=== PATIENT | male | born 2000 | race American Indian/Alaskan Native ===

== ENCOUNTER 2020-04-19 15:11 | Emergency (ER) | payer OTHER ==
[~2020-04-19] VITALS: Ht 170.2 cm; Wt 68.0 kg
[2020-04-19] MEDS ORDERED: DAILY MULTIPLE1 EACH PO (15:23)
--- NOTE | 2020-04-20 06:24 | EKG ---
[facility] [address] [place], [place] [address] Signed Normal sinus rhythm with sinus arrhythmia Rightward axis Borderline ECG No previous ECGs available Confirmed by LESLEY MEIER MD ([id number]) on 04/20/2020 6:24:28 AM Electronically Signed By: LESLEY MEIER MD 04/20/20623 PATIENT NAME: BLADE KAILASHSANDRA Electrocardiogram DATE OF : [birth year] PHYSICIAN: LESLEY MEIER MD REPORT #: [id number] REPORT IS CONFIDENTIAL AND NOT TO BE RELEASED WITHOUT AUTHORIZATION
== END 2020-04-19 17:22 | disposition home or self-care (01) ==
LOC: ED 15:11
DX: R09.1 Pleurisy (principal)
CPT/HCPCS: 36415; 71046; 80053; 83735; 84484; 85025; 93005; 93010; 96374; 99285-25; J1885

== ENCOUNTER 2021-01-17 19:28 | Emergency (ER) | payer OTHER ==
[~2021-01-17] VITALS: Ht 170.2 cm; Wt 65.0 kg
[~2021-01-17 19:28] MED LIST: DAILY MULTIPLE1 EACH PO
[2021-01-17] MEDS ORDERED: HYDROCODON-ACE1 EA10 PO (21:10)
== END 2021-01-17 22:16 | disposition home or self-care (01) ==
LOC: ED 19:28
DX: S62.316A Displaced fracture of base of fifth metacarpal bone, right hand, initial encounter for closed fracture (principal); S01.81XA Laceration without foreign body of other part of head, initial encounter; V00.131A Fall from skateboard, initial encounter
CPT/HCPCS: 12011; 29125; 73110; 90471; 90715; 99283-25

== ENCOUNTER 2024-10-04 14:43 | Emergency (ER) | payer OTHER ==
[~2024-10-04] VITALS: Ht 167.6 cm; Wt 74.1 kg
[~2024-10-04 14:43] MED LIST changes: +CYCLOBENZAPRINE10 MG PO; +HYDROCODON-ACE1 EA10 PO; +K-TAB ER20 MEQ PO; +PEPCID20 MG PO
[2024-10-04 15:42] LABS: BILIRUBIN, URINE NEGATIVE (negative); BLOOD/HGB, URINE NEGATIVE (Negative); KETONE, URINE NEGATIVE (Negative); LEUK ESTERASE, URINE NEGATIVE (negative); NITRITE, URINE NEGATIVE (negative)
[2024-10-04 15:47] LABS: BACTERIA, URINE NONE SEEN /hpf (negative); CASTS, URINE NONE SEEN \\lpf; COLLECTION TYPE, URINE CLEAN CATCH; CRYSTALS, URINE NONE SEEN (0-1+); EPITHELIAL CELLS, URINE SQUAMOUS 1+ /lpf (0-1+); RED BLOOD CELLS, URINE 0-1 /hpf (0-5); REFLEX CULTURE, URINE No (No); WHITE BLOOD CELLS, URINE 0-1 /HPF (0-5)
[2024-10-04] MEDS ORDERED: PANTOPRAZOLE SODIUM 40 MG/10 ML VIAL IV ONE (16:00)
[2024-10-04] MEDS ORDERED: KETOROLAC TROMETHAMINE 30 MG/ML VIAL IV ONE (16:00)
[2024-10-04] MEDS ORDERED: ondansetron HCL 4 MG/2 ML VIAL IV ONE (16:00)
[2024-10-04] MEDS ORDERED: SODIUM CHLORIDE 0.9% 1,000 ML IV ONE (16:00)
[2024-10-04 16:12] LABS: AMPHETAMINES, URINE NEGATIVE (NEGATIVE); BARBITURATES, URINE NEGATIVE (NEGATIVE); BENZODIAZEPINE, URINE NEGATIVE (NEGATIVE); BUPRENORPHINE, URINE NEGATIVE (NEGATIVE); CANNABINOID, URINE NEGATIVE (NEGATIVE); COCAINE, URINE NEGATIVE (NEGATIVE); ECSTASY, URINE NEGATIVE (NEGATIVE); FENTANYL, URINE NEGATIVE (NEGATIVE); METHADONE, URINE NEGATIVE (NEGATIVE); OPIATES, URINE NEGATIVE (NEGATIVE); OXYCODONE, URINE NEGATIVE (NEGATIVE); PHENCYCLIDINE, URINE NEGATIVE (NEGATIVE)
[2024-10-04 16:14] LABS: HEMATOCRIT 30.8 % (35.0-50.0); HEMOGLOBIN 10.4 g/dL (12.0-18.0); MCH 29.1 (27-36); MCHC 33.8 g/dl (30-36); MCV 86.3 fl (81-99); PLATELET COUNT 284 K/uL (140-440); RBC 3.57 M/ul (4.3-5.7)
[2024-10-04 16:30] LABS: LYMPHOCYTES, MANUAL DIFF 20; MONOCYTES, MANUAL DIFF 7; NEUTROPHILS, MANUAL DIFF 73
[2024-10-04 16:31] LABS: ALBUMIN 4.1 g/dL (3.4-5.0); BILIRUBIN, TOTAL 0.2 ng/dL (0.2-1.0); BUN/CREATININE RATIO 8.33 (6.0-28.6); CALCIUM 9.1 mg/dL (8.5-10.1); CREATININE, SERUM 0.72 mg/dL (0.70-1.30); PROTEIN, TOTAL 8.2 g/dL (6.4-8.2)
[2024-10-04 17:08] LABS: N. GONORRRHOEAE BY PCR NOT DETECTED (NOT DETECT)
[2024-10-04 19:29] VITALS: BP 143/89
== END 2024-10-04 19:31 | disposition home or self-care (01) ==
LOC: ED 14:43
PROVIDERS: Emergency Medicine
DX: C95.00 Acute leukemia of unspecified cell type not having achieved remission (principal); F10.129 Alcohol abuse with intoxication, unspecified; Z87.891 Personal history of nicotine dependence
CPT/HCPCS: 36415; 74176; 80053; 80307; 81001; 83690; 85025; 87491; 96374; 96375; 99284-25; G0480; J1885; J2405; J2470; J7030

== ENCOUNTER 2024-11-11 15:56 | Emergency (ER) | payer OTHER ==
[~2024-11-11] VITALS: Ht 167.6 cm; Wt 75.7 kg
[2024-11-11] MEDS ORDERED: OMEPRAZOLE20 MG PO (16:16)
[2024-11-11] MEDS ORDERED: ACETAMINOPHEN325 M1 PO (16:16)
[2024-11-11] MEDS ORDERED: IBUPROFEN600 MG PO (16:17)
[2024-11-11] MEDS ORDERED: LORazepam 2 MG/ML VIAL IV PRN (17:00)
[2024-11-11] MEDS ORDERED: SODIUM CHLORIDE 0.9% 1,000 ML IV ONE (17:00)
[2024-11-11 17:09] LABS: EOSINOPHILS 0.1 % (0-6); HEMATOCRIT 33.1 % (35.0-50.0); HEMOGLOBIN 10.7 g/dL (12.0-18.0); LYMPHOCYTES 17.8 % (24-44); MCH 25.4 (27-36); MCHC 32.4 g/dl (30-36); MCV 78.5 fl (81-99); MONOCYTES 8.5 % (0-12); NEUTROPHILS 72.6 % (39-80); PLATELET COUNT 331 K/uL (140-440); RBC 4.22 M/ul (4.3-5.7); RDW 21.2 (10.5-15.0)
[2024-11-11 17:29] LABS: ALBUMIN 4.5 g/dL (3.4-5.0); ALBUMIN/GLOBULIN RATIO 0.98 (1.1-2.4); ANION GAP 16.2 (7-21); BILIRUBIN, TOTAL 0.3 ng/dL (0.2-1.0); BUN/CREATININE RATIO 8.86 (6.0-28.6); CALCIUM 9.3 mg/dL (8.5-10.1); CREATININE, SERUM 0.79 mg/dL (0.70-1.30); MAGNESIUM 1.9 mg/dL (1.8-2.4); POTASSIUM 4.2 mmol/L (3.5-5.1); PROTEIN, TOTAL 9.1 g/dL (6.4-8.2)
[2024-11-11 18:41] LABS: AMPHETAMINES, URINE NEGATIVE (NEGATIVE); BARBITURATES, URINE NEGATIVE (NEGATIVE); BENZODIAZEPINE, URINE NEGATIVE (NEGATIVE); BUPRENORPHINE, URINE NEGATIVE (NEGATIVE); CANNABINOID, URINE NEGATIVE (NEGATIVE); COCAINE, URINE NEGATIVE (NEGATIVE); ECSTASY, URINE NEGATIVE (NEGATIVE); FENTANYL, URINE NEGATIVE (NEGATIVE); METHADONE, URINE NEGATIVE (NEGATIVE); OPIATES, URINE NEGATIVE (NEGATIVE); OXYCODONE, URINE NEGATIVE (NEGATIVE); PHENCYCLIDINE, URINE NEGATIVE (NEGATIVE)
[2024-11-11] MEDS ORDERED: CHLORDIAZEPOXID25 MG PO (18:53)
[2024-11-11 19:14] VITALS: BP 150/78
--- NOTE | 2024-11-13 10:16 | EKG ---
[facility] [address] [place] [address] Signed Normal sinus rhythm with sinus arrhythmia Normal ECG When compared with ECG of 03-MAY-2024 19:51, Nonspecific T wave abnormality has replaced inverted T waves in Inferior leads Nonspecific T wave abnormality no longer evident in Anterolateral leads Confirmed by Vilma Bejarano DO ([id number]) on 11/13/2024 10:16:33 AM Electronically Signed By: VILMA BEJARANO DO 11/13/24 1016 PATIENT NAME: SANDRA CRUZ Electrocardiogram DATE OF : 00 PHYSICIAN: VILMA BEJARANO DO REPORT #: [id number] REPORT IS CONFIDENTIAL AND NOT TO BE RELEASED WITHOUT AUTHORIZATION
== END 2024-11-11 19:08 | disposition home or self-care (01) ==
LOC: ED 15:56
PROVIDERS: Emergency Medicine
DX: F10.10 Alcohol abuse, uncomplicated (principal); Z87.891 Personal history of nicotine dependence; Z79.899 Other long term (current) drug therapy
CPT/HCPCS: 36415; 80053; 80307; 83690; 83735; 85025; 93005; 93010; 96374; 99285-25; G0480; J2060; J7030

== ENCOUNTER 2024-11-15 03:01 | Emergency (ER) | payer OTHER ==
[~2024-11-15] VITALS: Ht 167.6 cm; Wt 77.6 kg
[~2024-11-15 03:01] MED LIST changes: +ACETAMINOPHEN325 M1 PO; +CHLORDIAZEPOXID25 MG PO; +IBUPROFEN600 MG PO; +OMEPRAZOLE20 MG PO
--- OUTSIDE RECORDS SUMMARY | 2024-11-15 03:05 | XMS ---
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 Shon has no Care Guidelines for this patient. Jos VISIT COUNT (12 MO.) 6 [facility] TOTAL 6 NOTE: Visits indicate total known visits. 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 - Alcohol abuse with intoxication, unspecified - Other specified disorders of penis - Personal history of nicotine dependence 06/06/2024 13:17 [facility] [place] TYPE: Emergency COMPLAINT: - HEAD INJURY DIAGNOSES: - Laceration without foreign body of other part of head, initial encounter - Personal history of nicotine dependence - Striking against or struck by other objects, initial encounter 05/03/2024 19:51 [facility] [place] TYPE: Emergency COMPLAINT: - CHEST PAIN DIAGNOSES: - Alcohol abuse with intoxication, unspecified - Chest pain on breathing - Chest pain, unspecified - Hypokalemia - Personal history of nicotine dependence 02/25/2024 22:14 [facility] [place] TYPE: Emergency COMPLAINT: - CHEST PAIN DIAGNOSES: - Chest pain, unspecified - Other chest pain - Personal history of nicotine dependence INPATIENT VISIT TRACKING (12 MO.) No inpatient visits to display in this time frame [email or web address]
[2024-11-15] MEDS ORDERED: diphenhydrAMINE HCL 50 MG/ML VIAL IV ONE (03:15)
[2024-11-15] MEDS ORDERED: DEXAMETHASONE SOD PHOS 10 MG/ML VIAL IV ONE (03:15)
[2024-11-15] MEDS ORDERED: FAMOTIDINE 20 MG/ 2 ML VIAL IV ONE (03:15)
[2024-11-15] MEDS ORDERED: CETIRIZINE HCL 10 MG TAB PO ONE (03:15)
[2024-11-15] MEDS ORDERED: CETIRIZINE HCL10 MG PO (03:38)
[2024-11-15] MEDS ORDERED: methylPREDNISolone 4 MG HOME.PACK PO ONE (03:45)
[2024-11-15 04:16] VITALS: BP 133/78
== END 2024-11-15 04:18 | disposition home or self-care (01) ==
LOC: ED 03:01
DX: T78.3XXA Angioneurotic edema, initial encounter (principal); Z79.899 Other long term (current) drug therapy; Z87.891 Personal history of nicotine dependence
CPT/HCPCS: 96374; 96375; 99283-25; J1100; J1200

== ENCOUNTER 2025-05-28 21:38 | Emergency (ER) | payer OTHER ==
[~2025-05-28] VITALS: Ht 167.6 cm; Wt 79.8 kg
[~2025-05-28 21:38] MED LIST changes: +CETIRIZINE HCL10 MG PO
[2025-05-28] MEDS ORDERED: CEPHALEXIN500 M1 PO (21:57)
[2025-05-28] MEDS ORDERED: DIPHTH,PERTUSS(ACELL),TET VAC 0.5 ML SYRINGE IM ONE (22:00)
[2025-05-28] MEDS ORDERED: CEPHALEXIN MONOHYDRATE 500 MG HOME.PACK PO ONE (22:00)
[2025-05-28 22:05] VITALS: BP 120/78
== END 2025-05-28 22:05 | disposition home or self-care (01) ==
LOC: ED 21:38
DX: S01.442A Puncture wound with foreign body of left cheek and temporomandibular area, initial encounter (principal); Z87.891 Personal history of nicotine dependence; W45.8XXA Other foreign body or object entering through skin, initial encounter
CPT/HCPCS: 99283; A9270

== ENCOUNTER 2025-08-19 12:40 | Emergency (ER) | payer OTHER ==
[~2025-08-19] VITALS: Ht 167.6 cm; Wt 80.0 kg
--- OUTSIDE RECORDS SUMMARY | ~2025-08-19 | XMS | Continuity of Care Document ---
Demographics + + + | Address | [address] | | | [place] [address] | + + + | Preferred Language | Unknown | + + + | Marital Status | Never | + + + | Zoroastrian Affiliation | Unknown | + + + | Race | or | + + + | Ethnic Group | Not or | + + + Author + + + | Author | [facility] | + + + | Organization | [facility] | + + + | Address | [address] | | | [place] [address] | + + + | Phone | | + + + Care Team Providers + + + + | Care Obstetrics Gyn Physician Name | Role | Phone | + + + + Unavailable | Unavailable | + + + + Unavailable | Unavailable | + + + + Allergies No information. Encounters No information. Functional Status No information. Immunizations No information. Medications + + + + | date | description | facility | + + + + | 2025-05-28 00:00 | CEPHALEXIN | [facility] | | | | [facility] | + + + + | (no date) | [facility]OF[facility] | | | | [facility] | + + + + | (no date) | OMEPRAZOLE | [facility] | | | | [facility] | + + + + | (no date) | ACETAMINOPHEN | [facility] | | | | [facility] | + + + + Problems + + + + | date | description | facility | + + + + | 2025-05-28 00:00 | Fish hook in cheek | [facility] | | | | [facility] | + + + + Procedures No information. Results/Labs No information. Social History +--------+ + + | date | description | facility | +--------+ + + Vital Signs + + + +---------+ | date | measurement | value | units | + + + +---------+ | 2025-05-28 00:00 | BMI | 28.4 | kg/m2 | + + + +---------+ | 2025-05-28 00:00 | BP_diastolic | 78 | mmHg | + + + +---------+ | 2025-05-28 00:00 | BP_systolic | 120 | mmHg | + + + +---------+ | 2025-05-28 00:00 | heart_rate | 106 | /min | + + + +---------+ | 2025-05-28 00:00 | height_metric | 167.64 | cm | + + + +---------+ | 2025-05-28 00:00 | height_standard | 66 | in | + + + +---------+ | 2025-05-28 00:00 | o2_saturation | 92 | % | + + + +---------+ | 2025-05-28 00:00 | respiration_rate | 18 | /min | + + + +---------+ | 2025-05-28 00:00 | temperature_metric | 37 | C | | | | | | + + + +---------+ | 2025-05-28 00:00 | | 98.6 | F | | | temperature_standar | | | | | d | | | + + + +---------+ | 2025-05-28 00:00 | weight_metric | 79.8 | kg | + + + +---------+ | 2025-05-28 00:00 | weight_standard | 175.93 | lb | + + + +---------+"
[~2025-08-19 12:40] MED LIST changes: +CEPHALEXIN500 M1 PO; +VITAMIN D325 MC2 PO
--- OUTSIDE RECORDS SUMMARY | 2025-08-19 12:46 | XMS ---
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 Shon has no Care Guidelines for this patient. [facility] T[facility] NOTE: Visits indicate total known visits. ED/C VISIT TRACKING (12 MO.) [facility] COMPLAINT: - RT HAND INJURY 07/31/2025 01:22 [facility] [place] TYPE: Emergency COMPLAINT: - R SIDE PAIN DIAGNOSES: - Chondrocostal junction syndrome [Tietze] - Other chest pain - Personal history of nicotine dependence 05/28/2025 21:39 [facility] [place] TYPE: Emergency COMPLAINT: - CHEECK PAIN DIAGNOSES: - Other foreign body or object entering through skin, initial encounter - Personal history of nicotine dependence - Puncture wound with foreign body of left cheek and temporomandibular area, initial encounter 11/15/2024 03:01 [facility] [place] TYPE: Emergency COMPLAINT: - ALLERGIC REACTION DIAGNOSES: - Allergy, unspecified, initial encounter - Angioneurotic edema, initial encounter - Other custodial (current) drug therapy - Personal history of nicotine dependence 11/11/2024 15:56 [facility] [place] TYPE: Emergency COMPLAINT: - CHEST PAIN DIAGNOSES: - Alcohol abuse, uncomplicated - Alcohol abuse, uncomplicated - Other terminal system operator (current) drug therapy - Personal history of nicotine dependence - Weakness 10/04/2024 14:44 [facility] [place] TYPE: Emergency COMPLAINT: - GENITAL PROBLEM DIAGNOSES: - 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
[2025-08-19 14:35] VITALS: BP 113/69
== END 2025-08-19 14:36 | disposition home or self-care (01) ==
LOC: ED 12:40
DX: S61.411A Laceration without foreign body of right hand, initial encounter (principal); Z87.891 Personal history of nicotine dependence; W23.0XXA Caught, crushed, jammed, or pinched between moving objects, initial encounter; Y99.0 Civilian activity done for income or pay
CPT/HCPCS: 12001; 73130; 99283